=== PATIENT | male | born 1965 | race Caucasian/White ===

== ENCOUNTER → 2017-04-10 | Outpatient (REF) | payer BC, OTHER ==
[~2017-04-10] MED LIST: /DEXA4TA; COMPAZINE; No Historical Meds; OXYC10TA56; VICO5TAB; [UNRECOGNIZED DRUG - OTHER]
== END ==
LOC: M LAB REF 12:47
PROVIDERS: ATTEND Internal Medicine Medical Oncology
DX: C62.90 Malignant neoplasm of unspecified testis, unspecified whether descended or undescended (principal)

== ENCOUNTER → 2017-09-30 | Outpatient (REF) | payer OTHER | LOC: M LAB REF 13:23 | PROVIDERS: ATTEND Internal Medicine Medical Oncology | DX: C62.90 Malignant neoplasm of unspecified testis, unspecified whether descended or undescended (principal) ==

== ENCOUNTER → 2017-10-06 | Outpatient (CLI) | payer BC, OTHER ==
[~2017-10-06] MED LIST changes: +GASTROGRAFIN SOLUTION 30ML (Q9963) As Ordered ONE; +ISOVUE-370 76% 100ML VIAL (Q9967) As Ordered ONE
--- NOTE | 2017-10-06 13:54 | REP ---
CT of the abdomen pelvis without and with IV contrast and with bowel contrast: Comparison is 11/01/2012. The visualized lung scott are unremarkable except for dependent atelectasis. There is a small hiatal hernia. There is hepato steatosis. The hepatic parenchyma is otherwise homogeneous. The gallbladder, pancreas and spleen are zero normal size and unremarkable. The adrenals and kidneys are unremarkable. There are numerous retroperitoneal surgical clips as previously. There is no retroperitoneal adenopathy. There is no mesenteric adenopathy. There is no bowel distension. Pelvis: There is no ascites or adenopathy. The bladder is unremarkable. The pelvic bowel loops are unremarkable. I suspect there is an hemangioma in the L1 vertebral body. This is unchanged. Impression: Hepato steatosis. L1 vertebral body hemangioma, unchanged. No adenopathy, ascites or mass. No interval change. Signed by Vahid Perez MD 10/06/2017 01:46 P
--- NOTE | 2017-10-06 14:10 | REP ---
CT of the chest with IV contrast: Comparison is 01/15/2015. There is a stable 3 mm nodule in the left lower lobe on image 83, unchanged, likely a granuloma. There are no other pulmonary masses or nodules. There are no infiltrates or effusions. There is no mediastinal or hilar adenopathy. There is no axillary adenopathy. The thoracic aorta is unremarkable. Cardiac size is normal. There is no pericardial effusion. There are no lytic, blastic or destructive skeletal changes. Impression: There is no evidence of metastatic disease, adenopathy, infiltrate or effusion. There is a stable 3 mm granuloma in the left lower lobe. Signed by Vahid Perez MD 10/06/2017 02:01 P
== END ==
LOC: M RAD 08:45
PROVIDERS: ATTEND Internal Medicine Medical Oncology
DX: C62.90 Malignant neoplasm of unspecified testis, unspecified whether descended or undescended (principal); K76.0 Fatty (change of) liver, not elsewhere classified; J84.10 Pulmonary fibrosis, unspecified
CPT/HCPCS: 71260; 74178; Q9963; Q9967

== ENCOUNTER → 2018-04-12 | Outpatient (REF) | payer BC, OTHER ==
[2018-04-13 07:31] LABS: ALPHA FETOPROTEIN TUMOR QUANT 2.9 NG/ML (<8.1)
[2018-04-13 08:06] LABS: HCG SERUM TUMOR MARKER QUANT < 1 mIU/mL (0-3)
== END ==
LOC: M LAB REF 13:18
DX: C62.90 Malignant neoplasm of unspecified testis, unspecified whether descended or undescended (principal)
CPT/HCPCS: 84702